=== PATIENT | female | born 2005 | race Two or more races ===

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

== ENCOUNTER 2023-02-01 22:33 | Emergency (ER) | payer MEDICAID ==
[~2023-02-01] VITALS: Ht 160 cm; Wt 81.6 kg
[2023-02-02] MEDS ORDERED: AUG875T PO (01:54)
[2023-02-02] MEDS ORDERED: cefTRIAXone SOD 1,000 MG VL IM ONE (02:00)
[2023-02-02] MEDS ORDERED: TETANUS-DIPTH-ACEL PERTUSSIS 0.5ML SYR Tdap IM ONE (02:00)
[2023-02-02 04:20] VITALS: BP 115/74; PULSE 73; RESP 16; TEMP 97.9; O2SAT 98
== END 2023-02-02 04:29 | disposition home or self-care (01) ==
LOC: ER 22:33
DX: S60.931A Unspecified superficial injury of right thumb, initial encounter (principal); W54.0XXA Bitten by dog, initial encounter; Y93.89 Activity, other specified; Y92.89 Other specified places as the place of occurrence of the external cause; Y99.8 Other external cause status
CPT/HCPCS: 90471; 90715; 96372; 99284; J0696